=== PATIENT | female | born 1955 | race Caucasian/White ===

== ENCOUNTER → 2024-08-05 14:08 | Outpatient (REF) | payer OTHER, SELFPAY | LOC: RCS 14:08 | PROVIDERS: ATTENDING PHYSICIAN Internal Medicine Cardiovascular Disease; FAMILY PHYSICIAN Internal Medicine | DX: I48.91 Unspecified atrial fibrillation (principal); I49.8 Other specified cardiac arrhythmias; R06.02 Shortness of breath; E66.9 Obesity, unspecified; I10 Essential (primary) hypertension; R94.31 Abnormal electrocardiogram [ECG] [EKG] | CPT/HCPCS: 71046; 93225; 93226; 93306 ==

== ENCOUNTER → 2024-08-10 06:58 | Outpatient (REF) | payer OTHER, SELFPAY | LOC: RCS 06:58 | PROVIDERS: ATTENDING PHYSICIAN Internal Medicine Cardiovascular Disease; FAMILY PHYSICIAN Internal Medicine | DX: I48.91 Unspecified atrial fibrillation (principal); I49.8 Other specified cardiac arrhythmias; R06.02 Shortness of breath; E66.9 Obesity, unspecified; I10 Essential (primary) hypertension; R94.31 Abnormal electrocardiogram [ECG] [EKG] | CPT/HCPCS: 78452; 93017; A9500 ==

== ENCOUNTER → 2024-08-27 07:54 | Outpatient (REF) | payer OTHER, SELFPAY | LOC: RSP 07:54 | PROVIDERS: ATTENDING PHYSICIAN Internal Medicine Cardiovascular Disease; FAMILY PHYSICIAN Internal Medicine | DX: R06.02 Shortness of breath (principal); I48.91 Unspecified atrial fibrillation | CPT/HCPCS: 94727; 94729; 88738; 94060 ==

== ENCOUNTER → 2024-09-22 15:43 | Outpatient (REF) | payer OTHER, SELFPAY | LOC: DHSLP 15:43 | PROVIDERS: ATTENDING PHYSICIAN Internal Medicine Critical Care Medicine; FAMILY PHYSICIAN Internal Medicine | DX: G47.33 Obstructive sleep apnea (adult) (pediatric) (principal) | CPT/HCPCS: 95800 ==

== ENCOUNTER 2024-09-28 06:49 | Day surgery (SDC) | payer OTHER, SELFPAY ==
[2024-09-28] VITALS (12 sets, daily range): BP systolic 74–129; BP diastolic 46–87; BMI 38.2
[2024-09-28] MEDS: NSS 280 ML IV (07:15)
[2024-09-28 08:08] LABS: ALT (SGPT) 23 U/L (0-35); AST (SGOT) 23 U/L (14-36); Albumin 4.8 g/dl (3.5-5.0); Alkaline Phosphatase 120 U/L (38-126); Blood Urea Nitrogen 26 mg/dl (7-17); Calcium 9.9 mg/dl (8.4-10.2); Carbon Dioxide 23 mmol/L (22-30); Chloride 103 mmol/L (98-107); Estimated Creatinine Clearance 61 ml/min; Glucose 111 mg/dl (70-99); Potassium 4.3 mmol/L (3.5-5.1); Sodium 136 mmol/L (135-145); Total Protein 7.4 g/dl (6.3-8.2); eGFR > 60.00
--- NOTE | 2024-09-28 09:21 | ITS.CL.CATH ---
Video Editing Intern - Catheterization
Cardiac Catheterization
Procedure Report:
CARDIAC CATHETERIZATION REPORT
Date of Procedure: 09/28/2024
Referring: Fantasma Hand M.D.
Indication: Persistent shortness of breath, dyspnea on exertion, abnormal stress test.
PROCEDURE:
1. Right heart catheterization.
2. Coronary angiography.
3. Left heart catheterization
A total of 4 minutes of procedural/moderate sedation was utilized. An independent medical imaging director was present to assist with and help manage the patient's level of consciousness and physiologic status.
ACCESS:
1. 6 [place] right artery using a modified Seldinger technique under ultrasound guidance.
2. 5 [place] right antecubital vein using a modified Seldinger technique under ultrasound guidance.
CATHETERS:
1. 5 [place] balloon with.
2. 5 [place] JR4.
3. 5 [place] JL 3.5.
HEMODYNAMIC DATA
Weight (kg): 93.0
AO (s/d/x, mmHg): 105/64/78
LV (s/x, mmHg): 106/21
PCWP (a/v/x, mmHg): /
PA (s/d/x, mmHg): 42/24/30
RV (s/x, mmHg): 42/16
RA (a/v/x, mmHg): /
SVC SvO2 (%): 57.8
IVC SvO2 (%): Not obtained.
RA SvO2 (%): Not obtained.
RV SvO2 (%): Not obtained.
PA SvO2 (%): 60.1
SaO2 (%): 91.9
Hbg (g/dL): 14.7
LISA
CO (L/min): 2.68
CI (L/min/m2): 1.40
Thermodilution
CO (L/min): Not performed.
CI (L/min/m2): Not performed.
TPG (mmHg): 8
PVR (Mckinney Units): 2.99
SVR (dynes*seconds*cm^-5): 1821
AVO2 Diff (Volume %): 6.36
AV gradient (x, mmHg): None.
AV area (cm2): Normal.
MV gradient (x, mmHg): Not obtained.
MV area (cm2): Not obtained.
LEFT VENTRICULOGRAPHY: Not performed.
AORTOGRAPHY: Not performed.
CORONARY ANGIOGRAPHY
Dominance: Right.
Left Main: Normal size, bifurcating vessel. There is no coronary artery disease.
LAD: Normal size vessel giving rise to 3 diagonals. There is no coronary artery disease.
Ramus: Congenitally absent.
Circumflex: Normal size, nondominant vessel giving rise to 2 obtuse marginals. OM1 arises very high on the circumflex and supplies the majority of the lateral wall. There is a large atrial branch arising from the terminal end of the AV groove
circumflex.
RCA: Normal size, dominant vessel. There is no coronary artery disease.
INTERVENTIONS
None.
Closure Device: Vascular band for the right radial artery, manual pressure for the right antecubital vein.
Radiation dose (mGy): 459
DAP (cm2.Gy): 23.8
Fluoroscopy time (minutes): 2.9
CONCLUSIONS:
1. Right dominant circulation without coronary artery disease. There is a large right atrial branch extending from the AV groove circumflex.
2. Moderately elevated filling pressures (LVEDP = 21 mmHg, PCWP = 22 mmHg at 93.0 kg).
3. Mild postcapillary pulmonary hypertension (mean PA = 30 mmHg, PCWP = 22 mmHg, CO = 2.68 L/min, PVR = 2.99 Mckinney units), WHO group 2.
4. Depressed cardiac function (cardiac index 1.40 L/min/m�).
5. Elevated systemic vascular resistance (1821 dynes*seconds*cm^-5).
RECOMMENDATIONS:
1. Expectant management after cardiac catheterization via right radial/antecubital approach.
2. Limited weight bearing on the right wrist for one week.
3. Discontinued spironolactone/hydrochlorothiazide combination pill in favor of furosemide 40 mg daily. BMP in 1 week.
4. Continue OMT/GDMT as hemodynamics will tolerate.
5. There may be a role for SGLT2 inhibitors. This can be discussed as an outpatient.
6. Stable for outpatient follow-up.
Copy to: Fantasma Hand M.D., Dwayne Davis M.D.
Johann Palencia DO, FACC, FACP
[2024-09-28] MEDS: NSS 1000 IV (09:45)
[2024-09-28] MEDS: TYLENOL 650 MG PO (10:32)
== END 2024-09-28 12:15 | disposition home or self-care (01) ==
LOC: CATH 06:49
PROVIDERS: ATTENDING PHYSICIAN Internal Medicine Cardiovascular Disease; FAMILY PHYSICIAN Internal Medicine; REFERRING PHYSICIAN Internal Medicine Cardiovascular Disease
DX: I27.20 Pulmonary hypertension, unspecified (principal); R94.39 Abnormal result of other cardiovascular function study; R06.09 Other forms of dyspnea; R06.02 Shortness of breath; I10 Essential (primary) hypertension; E11.9 Type 2 diabetes mellitus without complications; R07.89 Other chest pain; Z79.01 Long term (current) use of anticoagulants
CPT/HCPCS: 80053; 93460; C1769; C1894; Q9967

== ENCOUNTER 2024-11-30 10:14 | Day surgery (SDC) | payer OTHER, SELFPAY ==
[2024-11-30] VITALS (10 sets, daily range): BP systolic 90–136; BP diastolic 53–81; BMI 38.8
--- NOTE | 2024-11-30 14:34 | ITS.CL.PACE ---
Material Planner - Pacemaker Implant
Pacemaker Implant
Procedure Report:
Dual Chamber Pacemaker Placement:
Ms. 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
Indications: Tachy Lito syndrome
Date of the Procedure: 11/30/2024
Pre-Operative Diagnosis: Tachy Lito syndrome
Post-Operative Diagnosis: Tachy Lito syndrome
Procedure Performed: DUAL CHAMBER PACEMAKER IMPLANTATION
Performing Physician:
Shanon Young MD
Assistants:
EP staff
Anesthesia:
See anethesia report
Pre-operative antibiotics:
Ancef
Detailed Description of the Procedure:
The patient was identified using hospital identification and informed consent obtained for the procedure. The risks were explained including, but not limited to: Bleeding, infection, arrhythmia, stroke, vascular/cardiac/lung puncture, surgery,
pacemaker dependency/device malfunction. All questions were answered.
The patient was brought to the electrophysiology laboratory in stable condition in fasting state. Continuous electrocardiographic and hemodynamic monitoring was initiated.
The initial rhythm was sinus and occasional junctional.
A surgical pause and time out was performed immediately prior to the procedure with review of her medical history, recent labs, allergies and medications with site of procedure identified and consent noted in the chart. Antibiotics pre operatively
given. All team members concurred.
The procedure site was meticulously prepared with surgical scrub and allowed to dry with no pooling. Sterile draping was applied to cover the procedure site. The image intensifier was draped with sterile bag and positioned over the patient.
The left infraclavicular region was prepped and draped in the usual sterile fashion. Local anesthesia was administered subcutaneously using 1% lidocaine / Bupivacaine. The left cephalic vein cutdown was performed with an incision at the
delto-pectoral groove, and vascular sheaths were introduced for lead access. These were advanced into the right ventricle and the right atrium.
There were extreme tortuosity noted in the subclavian vein and long sheaths were needed. The cardiac chambers were rotated as well.
The right ventricular lead was secured in position with an active fixation technique at the apical septal location.
The RA lead was attached in the right atrial appendage with active fixation.
There was excellent sensing, pacing, and impedance from the leads, with no diaphragmatic stimulation at 10 V output.�Bovie cautery, antibiotics, and fluoroscopy were used.
The sheaths were withdrawn, and the thresholds remained acceptable. The leads were secured in position at the venous entry site with 2-0 Ethibond suture. A pocket was fashioned contiguous to the incision. The electrode terminals were connected to
the pulse generator, which was placed into the pocket.
The device was anchored to the underlying fascia using 2-0 Ethibond suture.
The wound was irrigated thoroughly with antibiotic solution.
The wound was closed in 3 layers using 2-0 V loc then two layers of 4-0 Monocryl sutures to the dermis. Steri-strips were applied externally and covered with Aquacel bandage.
Procedure End:
The procedure was tolerated well.
Estimated Blood loss:
10 cc
Specimens Removed:
No cultures and no specimens were obtained. No intraoperative pathology was identified.
Fluoro time:
1.6 min / 7.8mGy
Urine output:
None
Packs / Drains/ Tubes:
None
Instrument / Sponge Count Correct:
Yes
Complications of the Procedure:
None
Condition of Patient at Time of Transfer:
Hemodynamically stable with no neurological or vascular compromise.
Device information:�
Generator: Tune Clout; Model: [id number]; Serial # [id number]�
Atrial Lead:
Tune Clout; Model: 5076-45; Serial # [id number]
Measured data in the right atrium was sensing of 3.1 mV, impedance of 513 ohms and threshold of 0.75 V at 0.4ms.
RV Lead:
Tune Clout; Model: 5076-52; Serial # [id number]
Measured data in the RV lead was sensing of 5mV, impedance of 817 ohms and threshold of 0.5 V at 0.4ms�
Lito parameter settings were AAIR < = > DDDR 60-130 bpm. �
����������� Mode Switch: On
����������� Paced AV interval: 180ms
����������� Sensed AV interval: 150 ms.
����������� Rate Adaptive A-V Interval: On
Output parameters:
����������������������� Amplitude (V)������������� Pulse Width (ms)������� Sensitivity (mV)
����������� RA: ���� 3.5 ����������������� ����������� 0.4������������������ ����������� 0.3
����������� RV:����� 3.5������������������ ����������� 0.4������������������ ����������� 0.9
Summary:
Successful implantation of MRI compatible dual chamber Medtronic pacemaker
Results/Recommendations:
-Please follow up CXR�
1. Please provide patient with adequate pain control�
Instructions to be given to patient:�
- Please follow up with [facility] at [address] [place] [address] ([phone]) to get your wound checked within 14 days of your discharge.
- Do not wet incision site until after it is evaluated at cardiology clinic. No soaking or bath until then. Showers or Sponge baths are OK.�Dab dry the area after a shower.
- Do not lift left elbow above shoulder, particularly with sudden jerking movements, for 1 month�
- Do not lift anything weighing more than 10 pounds with the left arm for 1 month�
- If you notice any fevers, shortness of breath, lightheadedness, chest pain, or worsening swelling in the wound site, please contact the arrhythmia clinic, contact your feller seam operator, or present to the hospital for evaluation.�
Shanon Young MD
Electrophysiology
[2024-11-30] MEDS: TYLENOL 650 MG PO (15:24)
--- NOTE | 2024-11-30 16:02 | W.PN.UPDATE ---
Update Note
Progress Note Update
Pt seen post dual chamber PPM implant. Left ACW w/aquacel dressing CDI, no ht/beeding, non tender. Post EKG AJR w/anterolateral NSSTT abn as before. Intermittent Apacing noted on tele. Post CXR w/stable lead position, no pneumothorax. Ralph hold
xarelto tonight and resume Tues 12/01 in PM. Incision check in 1 week at [facility]. Activity limitations reviewed with patient, she verbalized understanding. Home later today after 2nd dose antibiotic, if tele/site remain stable.
[2024-11-30] MEDS: ANCEF 5 IV (18:06)
== END 2024-11-30 18:35 | disposition home or self-care (01) ==
LOC: CATH 10:14
PROVIDERS: ATTENDING PHYSICIAN Internal Medicine Cardiovascular Disease; FAMILY PHYSICIAN Internal Medicine; OTHER PHYSICIAN Internal Medicine Cardiovascular Disease
DX: I49.5 Sick sinus syndrome (principal); I48.0 Paroxysmal atrial fibrillation; I10 Essential (primary) hypertension; G47.33 Obstructive sleep apnea (adult) (pediatric); Z79.01 Long term (current) use of anticoagulants
CPT/HCPCS: 33208; 71045; 93005; C1785; C1898

== ENCOUNTER 2024-12-09 10:57 | Emergency (ER) | payer OTHER, SELFPAY ==
[2024-12-09 11:04] VITALS: BP 117/79
--- NOTE | 2024-12-09 13:09 | ED.GENMED ---
History of Present Illness
General
Chief Complaint: Musculo-Skeletal Complaint
Source: patient and spouse
Time Seen by Provider: 12/09/24 12:54
Nursing documentation reviewed up to this point in time: agreed with
History of Present Illness
History of Present Illness:
69-year-old female with past medical history of hypertension, atrial fibrillation on Xarelto, sick sinus syndrome status post pacemaker who presents to the emergency room with her for evaluation of ankle pain. Patient notably had Medtronic
pacemaker placed by Dr. Young 11/30/2024. She presents today for evaluation of ankle pain which she says started yesterday and has been consistent and quite intense. She says that the pain is located mainly in the medial aspect of the left ankle
worse with any type of movement or palpation. No relieving factors noted. She denies any traumatic injury in fact she says she has been less active than usual since her procedure last week. Notes some mild swelling in both legs. She has noticed
some slight redness on the medial aspect of the left ankle. She denies any fever or chills. She reports that she has chronic dyspnea and not significantly worse than usual. Denies any chest pain. She denies any other acute complaints. She is on
Xarelto and reports compliance.
Past History
Past History
ED Past Medical History: Arrthythmia and HTN
ED Past Surgical History: Cholecystectomy and Tonsilectomy
Social History
Tobacco: Non-smoker
Alcohol: None
Drug: None
Personal:
Living: with family
Review of Systems
Review of Systems
All Other Systems: ROS reviewed and negative except as documented in HPI and ROS
Constitutional: Denies fever
Respiratory: Reports trouble breathing (Chronic)
Cardiac: Denies chest pain
ABD/GI: Denies nausea or vomiting
Musculoskeletal: Reports joint pain (Ankle pain); Denies edema, neck pain or back pain
Neurological: Denies dizzy or headache
Phy Exam
Physical Exam
Physical Exam:
General: Awake, alert, oriented x3; laying flat in bed appears uncomfortable
Head: Normocephalic, atraumatic
Eyes: Conjunctiva normal, sclera intact
Throat: Airway intact, handling secretions
Neck: Trachea midline, supple without meningismus
Lungs: Clear to auscultation bilaterally, no wheezing, rales, rhonchi
Heart: Regular rate and rhythm, no murmurs, gallops, or rubs; left upper chest wall pacemaker, pocket appears clean with Steri-Strips in place no signs of acute infection
Neuro: Grossly intact
Skin: No wounds noted, slight erythema over the medial aspect of the left ankle
Extremities: Trace edema in the ankles bilaterally, slight erythema medial aspect of the left ankle over the medial malleolus and significant tenderness of the medial malleolus and posterior to the medial malleolus; no tenderness of the left calf or
knee, no tenderness of the midfoot; palpable left dorsalis pedis pulse; significant pain on any attempted motion in the left ankle
Scores
Heart Failure Risk
Heart Failure Risk Score: Not Applicable
Heart Score for Chest Pain Patients
STEMI patient?: Not applicable
Withdrawal Assessment of Alcohol
Withdrawal Assessment Completed?: Not applicable
Course
Orders/Labs/Results
Orders:
Orders
12/09/24 11:10
ECG [Electrocardiogram (*1)] Urgent
Reason for Study: Shortness of Breath
EKG- Treatment ONCE
12/09/24 13:07
Acetaminophen [Tylenol] 1,000 mg PO NOW STA
Morphine Sulfate 4 mg IV NOW STA
CR Ankle - Left Min 3 Views Urgent
Comment:
Reason For Exam: left ankle pain
US Periph Venous LOWER Ext LT Urgent
Comment:
Reason For Exam: LLE pain, swelling; redness near ankle
12/09/24 13:09
Interrogate Pacemaker- Treatment ONCE
12/09/24 13:26
CPK [Creatine Phosphokinase] Urgent
CRP [C-Reactive Protein] Urgent
Complete Blood Count/With Diff Urgent
Comprehensive Metabolic Panel Urgent
ESR [Erythrocyte Sed Rate] Urgent
Lactate Level [Lactic Acid] Urgent
Uric Acid Urgent
12/09/24 15:05
Body Fluid Cell Count Urgent
What is the Body Fluid: joint
Date Specimen was Collected: 12/09/24
Time Specimen was Collected: 15:03
Comment: with DIFF
Body Fluid Crystals Urgent
What is the Body Fluid: joint
Date Specimen was Collected: 12/09/24
Time Specimen was Collected: 15:03
Body Fluid Glucose Urgent
Fluid Source: Other
Other Source: joint
Date Specimen was Collected: 12/09/24
Time Specimen was Collected: 15:03
Fluid Culture with Gram Stain Urgent
SHERRY Source: Joint Fluid
Specimen Description:
Date Specimen was Collected: 12/09/24
Time Specimen was Collected: 15:03
12/09/24 17:15
Prednisone [Deltasone] 50 mg PO NOW STA
Abnormal Lab Results
12/09/24
13:26
WBC 12.7 H 10^3/uL
(4.8-10.8)
MCH 32.6 H pg
(27.0-31.0)
Absolute Neuts (auto) 10.0 H 10^3/uL
(1.4-6.5)
Absolute Monos (auto) 0.8 H 10^3/uL
(0.1-0.6)
Neutrophils % 79.0 H %
(42.2-75.2)
Lymphocytes % 12.9 L %
(20.5-51.1)
ESR 47 H mm/hour
(0-20)
BUN 21 H mg/dl
(7-17)
Glucose 159 H mg/dl
(70-99)
Lactic Acid 2.2 H mmol/L
(0.7-2.0)
Uric Acid 7.9 H mg/dl
(2.5-6.2)
C-Reactive Protein 27.00 H mg/L
(0.0-10.00)
12/09/24 13:26
12/09/24 13:26
Vital Signs
Initial and Last Documented VS:
Initial Vital Signs
Temp Pulse Resp BP Pulse Ox
36.7 C 107 20 117/79 99
12/09/24 11:04 12/09/24 11:04 12/09/24 11:04 12/09/24 11:04 12/09/24 11:04
Last Documented Vital Signs
Temp Pulse Resp BP Pulse Ox
36.7 C 91 16 95/57 99
12/09/24 11:04 12/09/24 14:00 12/09/24 16:00 12/09/24 13:33 12/09/24 16:00
Procedures
Incision/Drainage/Joint Aspiration
Left Ankle:
Anethesia: 1% Lidocaine with Epi
Preparation: cleaned with Betadine
Type of procedure: aspiration
Nature of site: other (left ankle)
How much fluid was obtained?: scant amount
Fluid description: bloody
Treatment: bandaid applied
MDM/Problems Addressed
Differential Diagnosis Includes:
DVT, fracture, gout, septic arthritis, sprain
MDM/Problems Addressed:
69-year-old female presents for evaluation of atraumatic left medial ankle pain as described above. Vitals and exam as above. Plan to check labs including a CBC and a CMP, ESR/CRP, uric acid level. Check x-ray of the ankle as well as an
ultrasound to rule out DVT. Will treat pain. Monitor closely reassess as the above.
Labs reviewed: CBC shows leukocytosis to 12.7. CMP shows no clinically significant abnormalities. Uric acid was slightly elevated. ESR and CRP elevated. X-ray shows no acute abnormality. Ultrasound negative for DVT. Patient has strong pulses
throughout right lower extremity with no against diagnosis of arterial insufficiency or occlusion. At this point suspect either a superficial cellulitis of the medial ankle versus septic arthritis or gout. Will proceed with arthrocentesis for
diagnostic purposes.
Joint fluid reviewed WBC 1420 with negative Gram stain. Crystal analysis positive for MSU crystals. Overall clinical picture is consistent with gout. Plan to treat with oral steroids. Unfortunately patient cannot use NSAIDs as she is on Xarelto.
Will prescribe oxycodone for pain control. Spoke about lifestyle adjustments, follow-up plan and return precautions. Patient comfortable with this plan. All questions answered.
*Radiology
Radiology exam reviewed: preliminary read by ED provider and radiology read reviewed
*Pulse Oximetry
SaO2: 99
Oxygen Mode of Delivery: Room air
Patient hypoxic: no (99%)
*EKG
Interpreted by ED Provider?: Yes
Heart Rate: 97
Rate: normal
Rhythm: junctional
[place]: normal axis
Interval: normal interval
QRS Pattern: normal QRS
Ischemia: no ischemia
*Critical Care Note
Total Time (30-74mins, 75-104mins- exclusive of procedures): Not Applicable
Data Reviewed
Review of Other/Old Records Reveals: Labs and Records
Source: patient and records
ED Attending Note
-
Portions of this chart may have been created with voice recognition software.� Occasional wrong word or��sound alike� substitutions may have occurred due to the inherent limitations of voice recognition software.
Discharge Plan
Departure
Patient Disposition: Home (Routine Discharge)
Date of Disposition: 12/09/24
Time of Disposition: 17:10
Patient with high blood pressure during this ER visit?: No
Discharge Problem:
Gout
Instructions: Low-purine diet, Gout - ED (DC)
Prescriptions:
New
prednisone 10 mg Tablet
See Rx Instructions .ROUTE .COMPLEX Qty: 45 0RF
Rx Instructions:
Take By Mouth:
50 mg daily x3 days, 40 mg daily x3 days,
30 mg daily x3 days, 20 mg daily x3 days,
10 mg daily x3 days
oxycodone 5 mg tablet
5 mg PO TID PRN (Reason: Pain) Qty: 14 0RF
No Action
diltiazem HCl [Cardizem CD] 120 mg capsule,extended release 24hr
120 mg PO DAILY Qty: 30 0RF
losartan 25 mg Tablet
25 mg PO DAILY
PreserVision AREDS 2,148 mcg-113 mg-45 mg-17.4mg Tablet
1 tab PO BID
acetaminophen [Tylenol] 325 mg Tablet
650 mg PO Q6H PRN (Reason: mild discomfort)
diphenhydramine HCl [Sleep Aid (diphenhydramine)] 25 mg Tablet
25 mg PO HS PRN (Reason: insomnia)
loratadine 10 mg Tablet
10 mg PO DAILY PRN (Reason: allergies)
Xarelto 20 mg Tablet
20 mg PO QPM
furosemide [Lasix] 40 mg tablet
40 mg PO DAILY Qty: 30 11RF
Patient Comments:
pt skips lasix dose sometimes if she is going out for the day
ranitidine HCl 75 mg Tablet
75 mg PO DAILYPRN PRN (Reason: heart burn)
Referrals:
Dwayne Davis MD [Family Provider, Internal Medicine] - Follow up in 1 week
Activity Restrictions/Additional Instructions:
Thank you for visiting the Emergency Department at [facility].
1. Please schedule a follow up appointment as directed. Call first thing tomorrow morning to make an appointment.
2. If indicated, please take your medications as instructed and indicated on discharge paperwork.
3. If any of your symptoms do not improve, or persist, or become more severe within 6-12 hours, please return to the emergency department for further care.
4. Please return to the emergency department if you develop a headache, neck pain/stiffness, fever greater than 100.4F, chest pain, shortness of breath, persistent nausea, vomiting, slurred speech, difficulty walking, numbness/tingling, weakness,
signs of infection or any other symptoms that are worrisome to you.
Please call [phone] if you have any questions.
Interventions
Interventions:
*Risk Screen - Suicide Last Done: 12/09/24 11:04
*General Assessment Last Done: 12/09/24 11:04
*Neglect/Abuse Screening Last Done: 12/09/24 11:45
*ED- Fall Risk Assessment Last Done: 12/09/24 11:45
ED-Musculoskeletal Assessment Last Done: 12/09/24 11:45
Discharge Date and Time
Print Language: NIUEAN
[2024-12-09 13:33] VITALS: BP 95/57
[2024-12-09] MEDS: MORPHINE SULFATE 4 MG IV (13:35)
[2024-12-09] MEDS: TYLENOL 1000 MG PO (13:35)
[2024-12-09 13:54] LABS: Hematocrit 43.7 % (37.0-47.0); Hemoglobin 15.1 g/dL (12.0-16.0); Mean Corp Hgb Conc. 34.6 g/dL (33.0-37.0); Mean Corpuscular Volume 94.4 fL (81.0-99.0); Nucleated Red Blood Cells % 0 %; Platelet Count 233 10^3/uL (130-400); Red Cell Dist. Width 12.3 % (11.5-14.5)
[2024-12-09 14:21] LABS: ALT (SGPT) 19 U/L (0-35); AST (SGOT) 24 U/L (14-36); Albumin 4.7 g/dl (3.5-5.0); Alkaline Phosphatase 118 U/L (38-126); Blood Urea Nitrogen 21 mg/dl (7-17); Calcium 10.2 mg/dl (8.4-10.2); Carbon Dioxide 28 mmol/L (22-30); Chloride 101 mmol/L (98-107); Glucose 159 mg/dl (70-99); Potassium 3.7 mmol/L (3.5-5.1); Sodium 139 mmol/L (135-145); Total Protein 7.8 g/dl (6.3-8.2); Uric Acid 7.9 mg/dl (2.5-6.2); eGFR > 60.00
[2024-12-09 14:24] LABS: C-Reactive Protein 27.00 mg/L (0.0-10.00)
[2024-12-09 16:34] LABS: Body Fluid Second Tech RP
[2024-12-09] MEDS: DELTASONE 50 MG PO (17:24)
== END 2024-12-09 17:28 | disposition home or self-care (01) ==
LOC: EMR 10:57
PROVIDERS: EMERGENCY PHYSICIAN Emergency Medicine; FAMILY PHYSICIAN Internal Medicine
DX: M10.9 Gout, unspecified (principal); R22.42 Localized swelling, mass and lump, left lower limb; I10 Essential (primary) hypertension; I48.91 Unspecified atrial fibrillation; Z79.01 Long term (current) use of anticoagulants; Z90.49 Acquired absence of other specified parts of digestive tract
CPT/HCPCS: 20605; 99284; 96374; 73610; 80053; 82550; 82945; 83605; 84550; 85025; 85652; 86140; 87015; 87070; 87205; 89051; 89060; 93005; 93971

== ENCOUNTER 2025-01-21 05:59 | Day surgery (SDC) | payer OTHER, SELFPAY ==
[2025-01-19 10:46] VITALS: BMI 37.0
[2025-01-19 11:14] LABS: Hematocrit 42.4 % (37.0-47.0); Hemoglobin 14.7 g/dL (12.0-16.0); Mean Corp Hgb Conc. 34.7 g/dL (33.0-37.0); Mean Corpuscular Volume 95.7 fL (81.0-99.0); Nucleated Red Blood Cells % 0 %; Platelet Count 293 10^3/uL (130-400); Red Cell Dist. Width 12.1 % (11.5-14.5)
[2025-01-21] VITALS (32 sets, daily range): BP systolic 70–123; BP diastolic 41–96
[2025-01-21 09:00] LABS: ACT-LR - POC 343 Seconds (116-155)
[2025-01-21 09:21] LABS: ACT-LR - POC 372 Seconds (116-155)
--- NOTE | 2025-01-21 10:02 | ITS.CL.ABL ---
Supervisor - Ablation
Ablation
Procedure Report:
AFIB ablation :
Ms. Barrera is a very pleasant 69 yr old woman with symptomatic persistent AF and atrial flutters aand junctional tachycardia, is recommended for atrial fibrillation ablation.
Date of the Procedure:
01/21/25
Indications:
Paroxysmal atrial fibrillation / atrial flutter
Pre-Operative Diagnosis:
Paroxysmal atrial fibrillation / atrial flutter
Post-Operative Diagnosis:
Paroxysmal atrial fibrillation / atrial flutter
Procedure Performed:
Atrial fibrillation ablation with Pulsed-Field approach for pulmonary vein isolation
Roof dependent atrial flutter ablation
Posterior wall isolation
Performing Physician:
Shanon Young MD
Assistants:
EP staff
Anesthesia:
See anesthesia records
Detailed Description of the Procedure:
Written informed consent was obtained from the patient after a full explanation of the risks and benefits of the procedure including the risks of sedation and anesthesia.
The patient was brought to the electrophysiology laboratory in stable condition in fasting state. Continuous electrocardiographic and hemodynamic monitoring was initiated.
The initial rhythm was sinus.
The procedure site was meticulously prepared with surgical scrub and allowed to dry with no pooling. Sterile draping was applied to cover the procedure site. The image intensifier was draped with sterile bag and positioned over the patient. After
infusion of local anesthetic, vascular access was obtained under ultrasound guidance and sheaths were placed over guide wire as detailed below.
Sheath and Catheter Placement:
The following catheters / sheaths were placed
Sheaths:
17Fr steerable sheath (Faradrive�, [employer]) in right femoral
9Fr in right femoral vein
7Fr in right femoral vein
Catheters:
NEAL HD Grid mapping catheter � at locations of RA, LA
Farawave� PFA catheter
ICE catheter -AcuNav - at locations of RA, SVC, and RV.
Decapolar Bard catheter in RA and CS
Intracardiac ECHO:
An 8-Belizean AcuNav intracardiac ECHO (ICE) probe was advanced through the 9-Belizean sheath in the right femoral vein into the right atrium under fluoroscopic and ICE ultrasound image guidance and a baseline ECHO study was performed. The left atrial
size was dilated. There was moderate tricuspid regurgitation. The aortic valve was grossly normal. There was normal left ventricular systolic functions. There is small pericardial effusion. All the four veins were identified and has flow identified.
There was good flow noted in the TONY.
During the procedure, ICE was used for monitoring of complications, guidance of trans-septal puncture, monitor the catheter position and tracking ablation lesions. No change in the pericardial space noted throughout the procedure.
Trans-septal Puncture:
Heparin was initiated and infused to maintain appropriate ACT. A pigtail guidewire was advanced through the 8-Belizean sheath in the right femoral vein into the superior vena cava under fluoroscopic and ICE guidance. The 9-Belizean sheath was exchanged
for a Faradrive sheath which was advanced into the superior vena cava. A transseptal VersaCross RF pigtail via Faradrive connect system was utilized to perform the trans-septal puncture. The apparatus was withdrawn until it was in contact with the
fossa ovalis. The position was adjusted based on fluoroscopy and ultrasound images from ICE. Under fluoroscopic, hemodynamic and ICE ultrasound guidance, left atrium was cannulated by applying RF energy. Once atrial septum was cannulated, the
pigtail wire was advanced into the left atrium. The guide wire was advanced into the left superior pulmonary vein. Both the sheath and the dilator was advanced into the left atrium. The dilator with the needle was withdrawn. Blood was aspirated from
the Faradrive sheath and arterial blood confirmed. The sheath was flushed. Saline injection noted into the left atrium on ICE. The mapping catheter was advanced in the sheath into the left pulmonary vein. Left atrial pressure was measured.
3D Electroanatomic Mapping:
Using the HD Grid catheter advanced through sheath into the left atrium, an electroanatomic map (EAM) of the left atrium was created using [employer] mapping system. The map was used for localization of catheter position and tacking of ablation
lesions.
The EAM of the left atrium showed 4 pulmonary veins with all 4 veins electrically connected to the body the LA. It showed normal voltage and no evidence of scar on the posterior and anterior wall of the LA. However, pt did go into SVT 220 ms that
appeared earliest in the RIPV. It bump terminated with attempt of maping in the septal side.
The LA was dilated in size.
Following the EAM, preparation were made for ablation.
Ablation:
Ablation # 1: Pulmonary vein Isolation:
Glycopyrrolate 0.2 mg was given prior to the placement of ablation. Using Farawave pulsed field ablation system, pulmonary vein isolation was achieved. First the ablation catheter was placed in the LSPV and ostial ablation lesions were performed in
an �[place]� formation of the Farawave configuration and a counter clock ayoub rotation was done and ablated to cover the area between the electrodes. Then the catheter was placed on the antral location in �[place]� configuration and multiple ablation
lesions were placed circumferentially on the antrum of the vein.
In the similar fashion, the LIPV were isolated.
Then the catheter was moved to right sided veins. The ostial and antral ablations were placed as noted above.
Ablation #2: Roof dependent flutter ablation
Patient had hx of atrial flutter and the rhythm was switching from sinus to FL during the case. The flutter was coming from the LA.
Using the pulsed field ablation catheter, the catheter was placed between left superior pulmonary vein and right severe pulmonary vein with series of overlapping ablation lesions placed.
Ablation # 3: Posterior wall isolation:
Using the pulsed field ablation catheter, the catheter was placed on the posterior wall and moved around the posterior wall to have adequate contact and ablations were placed isolating the posterior wall.
Septal ablation:
The junctional tachycardia and the SVT was likely coming fromt he septal area. The right sided ablation is more likely to cause AV node ablation and the decision was mad to ablate the septal side of the atrial septum from the LA.
Additioanl ablations were placed on the septal side in front of the right inferior pulm vein.
EPS and Confirmation of the PVI and bidirectional block:
Following achievement of entrance block at the pulmonary veins, pacing from the HD catheter in each of the four veins at 10 milliamps for 2 milliseconds showed entrance and exit block. All PVI were rechecked at the end of the case and remained
isolated. Entrance and exit block were demonstrated in all veins.
EP study was done that showed intermittent AV node conduction at 500 msec and the AVNEP was 600/350 msec.
Burst pacing with aggressive maneuvers were done that failed to induce any arrhtyhmia.
Post ablation Electroanatomic mapping:
Once ablation was completed, the EAM of the LA was done again in sinus rhythm with excellent demarcation of LA myocardium and isolated antral tissue.
The TONY had healthy signals and was not isolated.
Procedure End
ICE study was done again that showed no epicardial accumulation. No complications noted.
Following the completion of the EP study, catheters were removed. Protamine 40 mg was given at the end of the procedure and ACT was checked repeatedly. The sheaths were removed and hemostasis achieved with �Figure of 8� and manual compression after
acceptable ACT is achieved.
Total Number PFA ablation lesiosn
59
Left atrial Pressure:
Mean LA pressure was 9mmHg
Mean RA pressure was 7 mmHg.
Estimated Blood loss:
<10 cc
Specimens Removed:
None.
Implants / Devices:
None
Urine output:
None
Packs / Drains/ Tubes:
None
Instrument / Sponge Count Correct:
Yes
Complications of the Procedure:
None
Condition of Patient at Time of Transfer:
Hemodynamically stable with no neurological or vascular compromise.
Summary:
Successful atrial fibrillation ablation with Pulsed Field approach for pulmonary vein isolation, roof dependent flutter ablation and posterior wall isolation. .
Figures from the Procedure:
Figure 1: The electroanatomic mapping (EAM) of the left atrium with bipolar voltage (purple indicates normal electrical activity with steiner as no myocardial muscle electric activity indicating a line of block or scar.
[2025-01-21] MEDS: NEO-SYNEPHRINE 250 IV (10:10)
[2025-01-21] MEDS: TORADOL 15 MG IV (10:15)
[2025-01-21] MEDS: PROTONIX IV 40 MG IV (10:36)
[2025-01-21] MEDS: NSS (PRESERVATIVE FREE) 10 ML IV (10:37)
[2025-01-21] MEDS: TYLENOL 650 MG PO (11:10)
--- NOTE | 2025-01-21 14:18 | W.PN.UPDATE ---
Update Note
Progress Note Update
69 yo WF s/p PVI (same day). She had some severe heartburn initially which improved with IV Protonix and Toradol as well as HOB 30deg, echo was done to r/o effusion which was unchanged. Her bp was low from anesthesia the entire procedure and
required IV levo for the first 3 hours post procedure. She was able to be weaned off the drip and bp stable, ambulated and voiding. EKG Apaced, groin c/d/i no HT, soft. She will resume Xarelto tonight and continue diltiazem. Activity restrictions
reviewed. She will f/u [employer] in 2 weeks. She is for d/c home after 230pm.
== END 2025-01-21 14:29 | disposition home or self-care (01) ==
LOC: CATH 05:59
PROVIDERS: ATTENDING PHYSICIAN Internal Medicine Cardiovascular Disease; FAMILY PHYSICIAN Internal Medicine; OTHER PHYSICIAN Internal Medicine Cardiovascular Disease
DX: I48.0 Paroxysmal atrial fibrillation (principal); I48.92 Unspecified atrial flutter; I47.10 Supraventricular tachycardia, unspecified; Z88.8 Allergy status to other drugs, medicaments and biological substances; I31.39 Other pericardial effusion (noninflammatory); I10 Essential (primary) hypertension; I49.5 Sick sinus syndrome; Z79.899 Other long term (current) drug therapy; I50.32 Chronic diastolic (congestive) heart failure
CPT/HCPCS: 93308; C1732; C1894; C1730; C1769; C1892; C1759; 36415; 85025; 85347; 86850; 86900; 86901; 93005; 93655; 93656; 93657; C1733; C1766

== ENCOUNTER 2025-02-16 06:45 | Day surgery (SDC) | payer OTHER, SELFPAY ==
--- NOTE | 2025-02-16 12:05 | W.PN.UPDATE ---
Update Note
Progress Note Update
Patient presented with sinus rhythm and was noted to have competing junctional escape rhythm.
Patient's device was interrogated. Patient has junctional escape is suppressing his sinus rhythm. No need for cardioversion at this time.
Currently patient is on diltiazem 120 mg once a day. Will increase diltiazem to 240 mg once a day.
Discharged home with follow-up with cardiology.
== END 2025-02-16 08:06 | disposition home or self-care (01) ==
LOC: CATH 06:45
PROVIDERS: ATTENDING PHYSICIAN Student in an Organized Health Care Education/Training Program; FAMILY PHYSICIAN Internal Medicine; OTHER PHYSICIAN Internal Medicine Cardiovascular Disease
DX: I48.91 Unspecified atrial fibrillation (principal); Z53.09 Procedure and treatment not carried out because of other contraindication
CPT/HCPCS: 93005